=== PATIENT | male | born 1960 | race Hispanic/Latino ===

== ENCOUNTER 2016-11-10 16:42 | Emergency (ER) | payer MEDICAID, OTHER ==
[2016-11-10 16:55] VITALS: PULSE 100; RESP 18; TEMP 98.3; O2SAT 95
--- NOTE | 2016-11-10 17:09 | C.PDOC ---
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 SX EXAM NEG Time Seen by Provider: 11/10/16 17:05 Chief Complaint (Nursing): Substance Abuse History Per: Patient History/Exam Limitations: no limitations Past Medical History Reviewed: Historical Data, Nursing Documentation, Vital Signs Vital Signs: Last Vital Signs Temp 98.3 F 11/10/16 16:51 Pulse 100 H 11/10/16 16:51 Resp 18 11/10/16 16:51 BP 155/95 H 11/10/16 17:20 Pulse Ox 95 11/10/16 17:18 - Medical History PMH: Fractures (ribs), Hiatal Hernia, Seizures (alcoholic) Denies: Diabetes, Hepatitis, HIV, HTN, Sexually Transmitted Disease - [facility] Procedures ALCOHOL DETOXIFICATION (02/17/13) INJECT/INFUSE NEC (01/18/04) Family History: States: Unknown Family Hx - Social History Hx Tobacco Use: Yes Hx Alcohol Use: Yes Hx Substance Use: No - Immunization History Hx Tetanus Toxoid Vaccination: No Hx Influenza Vaccination: No Hx Pneumococcal Vaccination: No Review Of Systems Except As Marked, All Systems Reviewed And Found Negative. Constitutional: Negative for: Fever Cardiovascular: Negative for: Chest Pain Respiratory: Negative for: Shortness of Breath Psych: Negative for: Suicidal ideation Physical Exam - Physical Exam Appears: Non-toxic, No Acute Distress, Other (NO SIGNS OR SYMPTOMS OF ACUTE WITHDRAWAL. PATIENT IS CALM AND COOPERATIVE. NO TONGUE FASCICULATION. NO TREMOR. ) Eye(s): bilateral: Normal Inspection Neck: Normal ROM Respiratory: No Accessory Muscle Use Extremity: Normal ROM ED Course And Treatment O2 Sat by Pulse Oximetry: 95 Progress Note: Case was discussed w/ composite bond worker, who states that there are no detox beds available. Patient made aware; Pt will be discharged w/ a list of detox programs, and information for the detox co-ordinator/instructions for pre- screening process. Patient is agreeable with plan. All questions answered. - Physician Consult Information Time Consulting Physician Contacted: 17:06 Outcome Of Conversation: D/W CRISIS AVEL, NO DETOX BEDS AVAIL Disposition Counseled Patient/Family Regarding: Diagnosis, Need For Followup - Disposition Referrals: [facility] [Outside] [facility] [Outside] [facility] [Provider Group] [facility] [Other] Disposition: HOME/ ROUTINE Disposition Time: 17:06 Condition: GOOD Instructions: Abuse of Alcohol (ED) - Clinical Impression Clinical Impression: Alcohol abuse - Scribe Statement The provider has reviewed the documentation as recorded by the Sarita ANDERSON All medical record entries made by the Daneibe were at my direction and personally dictated by me. I have reviewed the chart and agree that the record accurately reflects my personal performance of the history, physical exam, medical decision making, and the department course for this patient. I have also personally directed, reviewed, and agree with the discharge instructions and disposition.
[2016-11-10 17:21] VITALS: BP 155/95
== END 2016-11-10 17:20 | disposition home or self-care (01) ==
LOC: C.ER 16:42
DX: F10.10 Alcohol abuse, uncomplicated (principal); Y90.9 Presence of alcohol in blood, level not specified

== ENCOUNTER 2016-11-10 19:08 | Emergency (ER) | payer MEDICAID, OTHER | END 2016-11-10 19:31 | disposition left against medical advice (07) | LOC: C.ER 19:08 | DX: R42 Dizziness and giddiness (principal); Z02.9 Encounter for administrative examinations, unspecified ==

== ENCOUNTER 2016-11-13 07:11 | Emergency (ER) | payer MEDICAID, OTHER ==
[2016-11-13 07:17] VITALS: BP 145/96; PULSE 115; RESP 22; TEMP 98.1; O2SAT 97
--- NOTE | 2016-11-13 07:30 | C.PDOC ---
History Of Present Illness 56 yo male, hx of etoh abuse, presents requesting detox. as per pt, drank etoh 8 hours ago. at this time, pt reports mild tremors no fevers, n/v/d, no urinary changes. no trauma Time Seen by Provider: 11/13/16 07:25 Chief Complaint (Nursing): Substance Abuse Past Medical History Reviewed: Historical Data, Nursing Documentation, Vital Signs Vital Signs: Last Vital Signs Temp 98.1 F 11/13/16 07:16 Pulse 115 H 11/13/16 07:16 Resp 22 11/13/16 07:16 BP 145/96 H 11/13/16 07:16 Pulse Ox 97 11/13/16 07:48 - Medical History PMH: Fractures (ribs), Hiatal Hernia, Seizures (alcoholic) Denies: Diabetes, Hepatitis, HIV, HTN, Sexually Transmitted Disease - [facility] Procedures ALCOHOL DETOXIFICATION (02/17/13) INJECT/INFUSE NEC (01/18/04) Family History: States: Unknown Family Hx - Social History Hx Tobacco Use: Yes Hx Alcohol Use: Yes Hx Substance Use: No - Immunization History Hx Tetanus Toxoid Vaccination: No Hx Influenza Vaccination: No Hx Pneumococcal Vaccination: No Review Of Systems Except As Marked, All Systems Reviewed And Found Negative. Physical Exam - Physical Exam Appears: Well, No Acute Distress, Other (minimal tremor, steady gait) Skin: Normal Color, Warm, Dry Eye(s): bilateral: Normal Inspection, PERRL, EOMI Nose: Normal Throat: Normal Neck: Normal Cardiovascular: Rhythm Regular Respiratory: Normal Breath Sounds Gastrointestinal/Abdominal: Normal Exam Back: Normal Inspection Extremity: Normal ROM ED Course And Treatment O2 Sat by Pulse Oximetry: 97 Medical Decision Making Medical Decision Making: no detox beds avail. pt given outpt f/u and return precautions. advised to call ahead to secure detox bed. librium given as pt with minimal tremor. Disposition - Disposition Disposition: HOME/ ROUTINE Disposition Time: 07:27 Condition: STABLE Additional Instructions: please call ahead for detox bed. return to er with worsening symptoms or concerns Instructions: Abuse of Alcohol (ED) - Clinical Impression Clinical Impression: Alcohol abuse
== END 2016-11-13 07:47 | disposition home or self-care (01) ==
LOC: C.ER 07:11
DX: F10.10 Alcohol abuse, uncomplicated (principal); Y90.9 Presence of alcohol in blood, level not specified

== ENCOUNTER 2016-11-13 17:11 | Emergency (ER) | payer MEDICAID, OTHER ==
[2016-11-13 17:48] VITALS: TEMP 98.3
--- NOTE | 2016-11-13 19:35 | C.PDOC ---
History Of Present Illness Patient is a 56 year old male who presents to the ER requesting detox from ETOH. Patient admits his last drink was 2 1/2 hours ago. Denies any physical complaints at this time. Chief Complaint (Nursing): Substance Abuse History Per: Patient History/Exam Limitations: no limitations Onset/Duration Of Symptoms: Hrs Current Symptoms Are (Timing): Still Present Suicide/Self Injury Attempted (Context): None Modifying Factor(s): Alcohol Associated Symptoms: denies: Depression, Suicidal Thoughts, Suicidal Plan Recent travel outside of the [place]: No Past Medical History Reviewed: Historical Data, Nursing Documentation, Vital Signs Vital Signs: Last Vital Signs Temp 98.3 F 11/13/16 17:43 Pulse 112 H 11/13/16 20:49 Resp 20 11/13/16 20:49 BP 151/90 H 11/13/16 20:49 Pulse Ox 99 11/13/16 20:49 - Medical History PMH: Fractures (ribs), Hiatal Hernia, Seizures Surgical History: No Surg Hx - [facility] Procedures ALCOHOL DETOXIFICATION (02/17/13) INJECT/INFUSE NEC (01/18/04) Family History: States: Unknown Family Hx - Social History Hx Tobacco Use: Yes Hx Alcohol Use: Yes Hx Substance Use: Yes - Immunization History Hx Tetanus Toxoid Vaccination: No Hx Influenza Vaccination: No Hx Pneumococcal Vaccination: No Review Of Systems Constitutional: Negative for: Fever, Chills Gastrointestinal: Negative for: Nausea, Vomiting, Diarrhea Psych: Negative for: Depression Physical Exam - Physical Exam Appears: Well, Non-toxic, No Acute Distress Skin: Normal Color, Warm, Dry Head: Atraumatic, Normacephalic Eye(s): bilateral: Normal Inspection, EOMI Oral Mucosa: Moist Chest: Symmetrical, No Tenderness Cardiovascular: Rhythm Regular, No Murmur Respiratory: Normal Breath Sounds, No Rales, No Rhonchi, No Wheezing Gastrointestinal/Abdominal: Soft, No Tenderness Neurological/Psych: Oriented x3, Normal Speech, Normal Cognition ED Course And Treatment - Laboratory Results Result Diagrams: 11/13/16 19:36 11/13/16 19:36 O2 Sat by Pulse Oximetry: 95 (Room air) Pulse Ox Interpretation: Normal Progress Note: Blood work and urinalysis ordered. Consulted with crisis for availability of detox beds, no detox beds available, will discharge home. Disposition Counseled Patient/Family Regarding: Diagnosis - Disposition Referrals: [facility] [Outside] Disposition: HOME/ ROUTINE Disposition Time: 20:24 Condition: STABLE Instructions: Narcotic Abuse (ED), Abuse of Alcohol (ED) - POA Present On Arrival: None - Clinical Impression Clinical Impression: Drug abuse, Alcohol abuse - Scribe Statement The provider has reviewed the documentation as recorded by the Scribe Darian Kim All medical record entries made by the Scribe were at my direction and personally dictated by me. I have reviewed the chart and agree that the record accurately reflects my personal performance of the history, physical exam, medical decision making, and the department course for this patient. I have also personally directed, reviewed, and agree with the discharge instructions and disposition.
[2016-11-13 19:39] LABS: BASO % 0.5 % (0.0-2.0); EOS % 0.8 % (0.0-4.0); HEMATOCRIT 41.5 % (35.0-51.0); LYMPH # 0.9 K/uL (1.0-4.3); LYMPH % 17.3 % (20.0-40.0); MONO # 0.7 K/uL (0.0-0.8); MONO % 13.9 % (0.0-10.0); NRBC % 0.2 % (0.0-2.0); RED CELL DISTRIBUTION WIDTH 14.1 % (11.5-14.5); WHITE BLOOD COUNT 5.1 K/uL (4.8-10.8)
[2016-11-13 19:42] LABS: RBC URINE 1 /hpf (0-3); URINE BILIRUBIN NEGATIVE (NEGATIVE); URINE BLOOD NEGATIVE (NEGATIVE); URINE GLUCOSE (UA) NORMAL (Normal); URINE KETONE 1+ mg/dL (NEGATIVE); URINE LEUKOCYTE ESTERASE NEG Leu/uL (Negative); URINE PROTEIN 1+ mg/dL (NEGATIVE); WBC URINE 2 /hpf (0-5)
[2016-11-13 19:43] LABS: URINE COLOR YELLWO (YELLOW)
[2016-11-13 19:47] LABS: CHLORIDE 88 mmol/L (98-107); POTASSIUM 3.9 mmol/L (3.6-5.2); SODIUM 131 mmol/L (132-148)
[2016-11-13 19:49] LABS: BILIRUBIN,TOTAL 1.4 mg/dL (0.2-1.3); CARBON DIOXIDE 27 mmol/L (22-30); GFR AFRICAN-AMERICAN > 60
[2016-11-13 19:50] LABS: ALB/GLOB RATIO 1.7 (1.0-2.1); ALKALINE PHOSPHATASE 47 U/L (38-126); ALT/SGPT 118 U/L (21-72); AST/SGOT 219 U/L (17-59); BLOOD UREA NITROGEN 9 mg/dL (9-20); GLUCOSE,RANDOM 97 mg/dL (75-110); TOTAL PROTEIN 7.7 g/dL (6.3-8.3)
[2016-11-13 19:51] LABS: ALCOHOL SERUM 99 mg/dl (0-10)
[2016-11-13 20:51] VITALS: BP 151/90; PULSE 112; RESP 20
[2016-11-17 19:42] VITALS: O2SAT 95
== END 2016-11-13 20:51 | disposition home or self-care (01) ==
LOC: C.ER 17:11
DX: F10.10 Alcohol abuse, uncomplicated (principal); F19.10 Other psychoactive substance abuse, uncomplicated; Y90.4 Blood alcohol level of 80-99 mg/100 ml

== ENCOUNTER 2016-11-14 15:09 | Inpatient (IN) | payer MEDICAID, OTHER ==
[2016-11-14 16:17] LABS: BASO % 0.7 % (0.0-2.0); EOS # 0.1 K/uL (0.0-0.7); EOS % 2.9 % (0.0-4.0); HEMATOCRIT 38.4 % (35.0-51.0); LYMPH # 1.4 K/uL (1.0-4.3); LYMPH % 31.1 % (20.0-40.0); MEAN CELL VOLUME 98.5 fL (80.0-94.0); MEAN CORPUSCULAR HGB CONC 35.5 g/dL (33.0-37.0); MEAN PLATELET VOLUME 7.6 fL (7.2-11.7); MONO # 0.6 K/uL (0.0-0.8); MONO % 13.2 % (0.0-10.0); RED CELL DISTRIBUTION WIDTH 13.8 % (11.5-14.5); WHITE BLOOD COUNT 4.6 K/uL (4.8-10.8)
[2016-11-14 16:26] LABS: CHLORIDE 89 mmol/L (98-107); POTASSIUM 3.7 mmol/L (3.6-5.2); SODIUM 128 mmol/L (132-148)
[2016-11-14 16:28] LABS: BILIRUBIN,TOTAL 1.3 mg/dL (0.2-1.3); GFR AFRICAN-AMERICAN > 60
[2016-11-14 16:29] LABS: ALB/GLOB RATIO 1.6 (1.0-2.1); ALKALINE PHOSPHATASE 46 U/L (38-126); ALT/SGPT 120 U/L (21-72); AST/SGOT 220 U/L (17-59); BLOOD UREA NITROGEN 5 mg/dL (9-20); CALCIUM 8.8 mg/dl (8.6-10.4); CARBON DIOXIDE 25 mmol/L (22-30); GLUCOSE,RANDOM 81 mg/dL (75-110); TOTAL PROTEIN 6.9 g/dL (6.3-8.3)
[2016-11-14 16:30] LABS: ALCOHOL SERUM 120 mg/dl (0-10)
[2016-11-14 16:41] LABS: URINE BACTERIA RARE (<OCC); URINE BILIRUBIN NEGATIVE (NEGATIVE); URINE BLOOD NEGATIVE (NEGATIVE); URINE COLOR Yellow (YELLOW); URINE GLUCOSE (UA) NORMAL (Normal); URINE KETONE TRACE mg/dL (NEGATIVE); URINE LEUKOCYTE ESTERASE NEG Leu/uL (Negative); URINE PROTEIN NEGATIVE (NEGATIVE); URINE UROBILINOGEN NORMAL mg/dL (0.2-1.0)
--- NOTE | 2016-11-14 16:41 | RAD ---
HISTORY: L arm numbness COMPARISON: 02/19/2013. TECHNIQUE: Chest PA and lateral FINDINGS: LUNGS: No active pulmonary disease. PLEURA: No significant pleural effusion identified. No pneumothorax apparent. CARDIOVASCULAR: Normal. OSSEOUS STRUCTURES: No significant abnormalities. VISUALIZED UPPER ABDOMEN: Normal. OTHER FINDINGS: Pectus deformity. Normal variant IMPRESSION: No active disease. No significant interval change compared to the prior examination(s).
[2016-11-14] MEDS ORDERED: Sodium Chloride 0.9% 1,000 ML IV ONE (16:59)
[2016-11-14] MEDS ORDERED: Folic Acid 1 MG, Thiamine 100 MG, Multivitamin (MVI) 10 ML in Dextrose 5% In Water 1,00... IV SCH (17:00)
--- NOTE | 2016-11-14 17:00 | C.PDOC ---
History Of Present Illness 56 y/o male presents to the ED requesting alcohol detox. Pt last drank this morning. Pt suffers from tremors, history of seizure due to withdrawal in 2009 which led to a coma. Pt took 1/2 xanax this morning and half prior to arrival but tremors still presents. Pt also reports numbness to left arm associated with cramping sensation to finger earlier today, currently resolved. Pt denies SOB, chest pain, headache, abdominal pain, fever, vomiting or any other complaints. 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 Seen by Provider: 11/14/16 15:25 Chief Complaint (Nursing): Substance Abuse History Per: Patient History/Exam Limitations: no limitations Onset/Duration Of Symptoms: Days Current Symptoms Are (Timing): Still Present Modifying Factor(s): Alcohol Severity: Moderate Involuntary Hold By: None Recent travel outside of the [place]: No Past Medical History Reviewed: Historical Data, Nursing Documentation, Vital Signs Vital Signs: Last Vital Signs Temp 98.5 F 11/14/16 15:14 Pulse 98 H 11/14/16 15:14 Resp 18 11/14/16 15:14 BP 158/93 H 11/14/16 15:14 Pulse Ox 95 11/14/16 17:43 - Medical History PMH: Fractures (ribs), Hiatal Hernia, Seizures (due to alcohol w/d) - [facility] Procedures ALCOHOL DETOXIFICATION (02/17/13) INJECT/INFUSE NEC (01/18/04) Family History: States: Unknown Family Hx - Social History Hx Tobacco Use: Yes Hx Alcohol Use: Yes Hx Substance Use: Yes (PT DENIES) - Immunization History Hx Tetanus Toxoid Vaccination: No Hx Influenza Vaccination: No Hx Pneumococcal Vaccination: No Review Of Systems Except As Marked, All Systems Reviewed And Found Negative. Constitutional: Negative for: Fever, Chills Cardiovascular: Negative for: Chest Pain Respiratory: Negative for: Shortness of Breath Gastrointestinal: Negative for: Vomiting, Abdominal Pain Neurological: Negative for: Weakness, Numbness, Headache Psych: Positive for: Other (tremors) Physical Exam - Physical Exam Appears: Non-toxic, No Acute Distress, Unkempt, Other (smells of alcohol) Skin: Warm, Dry, No Rash Head: Atraumatic, Normacephalic Eye(s): bilateral: PERRL, EOMI Ear(s): Bilateral: Normal Nose: Normal, No Discharge Oral Mucosa: Dry, No Drooling, No Trismus Neck: Normal, Normal ROM, Trachea Midline, Supple Chest: Symmetrical Cardiovascular: Rhythm Regular, No Edema, No Murmur Respiratory: Normal Breath Sounds, No Decreased Breath Sounds, No Accessory Muscle Use, No Rales, No Rhonchi, No Wheezing Gastrointestinal/Abdominal: Normal Exam, Bowel Sounds (normal), Soft, No Tenderness, No Organomegaly, No Mass, No Distention, No Guarding, No Rebound Back: Normal Inspection, No CVA Tenderness, No Vertebral Tenderness Extremity: Normal ROM, No Tenderness, No Swelling Extremity: Bilateral: Atraumatic, Normal ROM Neurological/Psych: Oriented x3, Normal Speech, Normal Cognition, Normal Cranial Nerves, No Cerebellar Signs, Normal Motor, Normal Sensation, Other ( mild tremor noted to hands) Gait: Steady ED Course And Treatment - Laboratory Results Result Diagrams: 11/14/16 16:19 11/14/16 16:04 O2 Sat by Pulse Oximetry: 95 (room air) Pulse Ox Interpretation: Normal Medical Decision Making Medical Decision Makin yo M presents for etoh detox, patient has a h/o etoh abuse, last intake was this AM. Patient was pre-screened by Sarah. Orders placed for labs, CXR, and ekg. EKG: NSR at 88 bpm, prolonged QT, (-) acute ST changes, as read by LUIS MANUEL. CXR: NAD, as read by LUIS MANUEL. Labs reviewed. Na 128, AST 220 / ALT 120, Etoh 120. NS 1 L bolus and banana bag IV ordered. Patient is medically cleared for evaluation by detox/crisis. Patient was evaluated by crisis, arrangements placed for the patient to go to detox. 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 - Scribe Statement The provider has reviewed the documentation as recorded by the Daneibkyler Garcia All medical record entries made by the Sarita were at my direction and personally dictated by me. I have reviewed the chart and agree that the record accurately reflects my personal performance of the history, physical exam, medical decision making, and the department course for this patient. I have also personally directed, reviewed, and agree with the discharge instructions and disposition.
[2016-11-14] MEDS ORDERED: Sodium Chloride 0.9% 1,000 ML ONE (18:25)
[2016-11-15] MEDS: Multiple Vitamins Tab PO SCH (10:48)
[2016-11-15 11:31] LABS: CHLORIDE 94 mmol/L (98-107); SODIUM 132 mmol/L (132-148)
[2016-11-15 11:32] LABS: POTASSIUM 4.2 mmol/L (3.6-5.2)
[2016-11-15 11:33] LABS: GFR AFRICAN-AMERICAN > 60
[2016-11-15 11:34] LABS: ALB/GLOB RATIO 1.5 (1.0-2.1); ALKALINE PHOSPHATASE 42 U/L (38-126); ALT/SGPT 99 U/L (21-72); AST/SGOT 137 U/L (17-59); BILIRUBIN,TOTAL 1.2 mg/dL (0.2-1.3); BLOOD UREA NITROGEN 9 mg/dL (9-20); CARBON DIOXIDE 31 mmol/L (22-30); GLUCOSE,RANDOM 99 mg/dL (75-110); PHOSPHOROUS 3.6 mg/dL (2.5-4.5); TOTAL PROTEIN 6.3 g/dL (6.3-8.3)
[2016-11-15 11:35] LABS: CALCIUM 8.5 mg/dl (8.6-10.4)
[2016-11-15 11:37] LABS: MAGNESIUM 2.2 mg/dL (1.6-2.3)
--- NOTE | 2016-11-15 13:58 | PCM.PSYCH ---
Initial Psychiatric Evaluation - Initial Psychiatric Evaluation Type of Admission: Voluntary Legal Status: Capacity Chief Complaint (in patient's own words): ""Alcohol" History of Present Illness and Precipitating Events: The patient is seen, chart reviewed and case discussed. This is a 56-year-old male, , has 4 adult children, homeless and lives at [facility]. 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 The patient admits to drinking up to 18 beers a day since age 16. He denies liquor use. His longest sobriety was 3 years and he was in detox twice, rehabilitation once, at [facility]. He denies all other drug use except for using Xanax once or twice. He had seizures several years ago but denies DTs. He does have wdw sxs at this time. Past psych history: Denies Family psych history: Denies Medical history: Denies Current Medications: Active Medications Generic Name Dose Route Start Last Admin Trade Name Freq PRN Reason Stop Dose Admin Folic Acid 1 mg 11/15/16 10:00 11/15/16 10:48 Folic Acid PO 1 mg DAILY GLORIA Administration Lorazepam 1 mg 11/14/16 19:20 Ativan PO Q4H PRN Symptoms of alcohol withdrawl Lorazepam 2 mg 11/15/16 09:00 11/15/16 10:21 Ativan PO 11/20/16 08:59 Not Given Q6H GLORIA Taper Multivitamins 1 tab 11/15/16 10:00 11/15/16 10:48 Hexavitamin PO 1 tab DAILY GLORIA Administration Nicotine 1 patch 11/15/16 10:45 11/15/16 10:50 Nicoderm Cq TD 1 patch DAILY GLORIA Administration Thiamine HCl 100 mg 11/15/16 10:00 11/15/16 10:48 Vitamin B1 Tab PO 100 mg DAILY GLORIA Administration Trazodone HCl 50 mg 11/14/16 19:20 Desyrel PO HS PRN Insomnia Past Psychiatric History - Past Psychiatric History Previous Treatment History: None Pertinent Medical Hx (Current Medical&Sleep Prob, Allergies): Allergies Allergy/AdvReac Type Severity Reaction Status Date / Time No Known Allergies Allergy Verified 11/14/16 15:12 RX: No Known Home Med 11/10/16 Review of Systems - Psychiatric Psychiatric: Abnormal Sleep Pattern, Anxiety, Difficulty Concentrating. absent : Hallucinations, Homicidal Ideation, Suicidal Ideation Mental Status Examination - Personal Presentation Personal Presentation: Looks stated age - Affect Affect: Constricted - Motor Activity Motor Activity: Calm - Reliability in Providing Information Reliability in Providing Information: Good - Speech Speech: Organized - Mood Mood: Anxious - Formal Thought Process Formal Thought Process: No Impairment - Cognitive Functions Orientation: Person, Place, Situation, Time Sensorium: Alert Attention/Concentration: Attentive Estimate of Intelligence: Average Judgement: Intact, as evidence by: Insight regarding need for hospitalization Memory: Recent intact, as evidence by: Ability to recall events of the day, Remote intact, as evidenced by: Ability to recall historical events - Risk Risk: Diminished functioning - Strength & Assets Inventory Strength & Assets Inventory: Cooperative - Limitations Limitations: Living alone DSM 5 DX - DSM 5 DSM 5 Diagnosis: Alcohol withdrawal Alcohol use d/o - severe - Recommended/Plan of Treatment Treatment Recommendations and Plan of Treatment: Ativan detox due to elevated LFTs gabapentin As needed medications Support and psychoeducation Attend groups and activities NH and CBT for abstinence and relapse prevention Refer to rehabilitation or IOP Consider naltrexone when liver is better Topamax for cravings 32 min Projected ELOS: 4-5 days Prognosis: good Discharge Plan and Discharge Criteria: no wdw refer to rehab or iop - Smoking Cessation Smoking Cessation Initiated: Yes
--- NOTE | 2016-11-15 18:29 | CARD ---
APPROVED REPORT EKG Measurement Heart [id number] <Conclusion> Normal sinus rhythm Prolonged QT Abnormal ECG
[2016-11-16] MEDS: Multiple Vitamins Tab PO SCH (09:40)
--- NOTE | 2016-11-16 14:54 | PCM.PYCHPN ---
Psychiatric Progress Note - Psychiatric Progress Note Patient seen today, length of contact: 16 min Patient Chief Complaint: "Tired" Problems Identified/Issues Discussed: The pt is seen, chart reviewed, case discussed with staff. The pt is compliant with medications and reports no side-effects. Symptoms of withdrawal are improving but needs more time to stabilize. After care discussed, MAT and rehab recommended Support and psychoeducation given. Medication Change: Yes (detox changes daily) Medical Record Reviewed: Yes Mental Status Examination - Cognitive Function Orientation: Person, Place, Situation, Time Memory: Intact (mostly) Attention: Poor Concentration: Poor - Mood Mood: Anxious - Affect Affect: Constricted - Speech Speech: Appropriate - Formal Thought Process Formal Thought Process: No Impairment - Suicidal Ideation Suicidal Ideation: No - Homicidal Ideation Homicidal Ideation: No Goal/Treatment Plan - Goal/Treatment Plan Need for Continued Stay: Discharge may exacerbated symptoms, Severe functional impairment Progress Toward Problem(s) and Goals/Treatment Plan: Ativan detox due to elevated LFTs gabapentin As needed medications Support and psychoeducation Attend groups and activities ME and CBT for abstinence and relapse prevention Refer to rehabilitation or IOP Consider naltrexone when liver is better Topamax for cravings Estimated Date of D/C: 11/18/16 - Smoking Cessation Smoking Cessation Initiated: Yes
[2016-11-17 06:08] VITALS: O2SAT 97
--- NOTE | 2016-11-17 08:49 | PCM.PYCHDC ---
Mental Status Examination - Mental Status Examination Orientation: Person, Place, Situation, Time Memory: Intact Mood: Neutral Affect: Constricted Speech: Soft Attention: WNL Concentration: WNL Association: WNL Fund of Knowledge: WNL Formal Thought Process: No Impairment Description of patient's judgement and insight: good, fair Psychotic Thoughts and Behaviors: denies any AVH Suicidal Ideation: No Current Homicidal Ideation?: No Discharge Summary - Discharge Note Reason for Hospitalization: The patient is seen, chart reviewed and case discussed. This is a 56-year-old male, , has 4 adult children, homeless and lives at [facility]. 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 The patient admits to drinking up to 18 beers a day since age 16. He denies liquor use. His longest sobriety was 3 years and he was in detox twice, rehabilitation once, at [facility]. He denies all other drug use except for using Xanax once or twice. He had seizures several years ago but denies DTs. He does have wdw sxs at this time. Consultations:: List each consultation separately and include: 1. Reason for request. 2. Findings. 3. Follow-up Summary of Hospital Course include:: 1. Description of specific treatment plan utilized for patients during their course of treatmen. 2. Summarize the time- course for resolution of acute symptoms and/or regressed behaviors. 3. Describe issues identified and worked on during hospitalization. 4. Describe medication utilized. 5. Describe medical problems identified and treated. 6. Reassessment of suicide risk Summary of Hospital Course: During the course of his stay, patient (pt) started progressively improving and he no longer remained anxious and irritable. He tolerated the withdrawal protocol very well. He didnt have any shakes, sweating or any other withdrawal symptoms. He started attending groups and meetings and started socializing. Denied any feelings of hopelessness, helplessness, and worthlessness, denied any problem with the sleep or appetite, denied suicidal ideation or homicidal ideation. Pt denied any auditory or visual hallucinations. Patient remained calm and cooperative and remained compliant with the medications. Patient tolerated the detox medications very well and denied any side effects. - Final Diagnosis (DSM 5) Condition upon Discharge: STABLE DSM 5: Alcohol withdrawal Alcohol use d/o - severe Disposition: HOME/ ROUTINE Follow-up Treatment Plan: Education: Pt was educated and counseled about the risks and benefits of taking and not taking medications. Pt was educated and counseled about the risks of drinking and abusing drugs. Pt was educated and counseled to go to the ER or call 911 if pt develop suicidal ideation or homicidal ideation, worsening of symptoms or severe side effects of the meds. Prescriptions/Medication Reconciliation: Gabapentin [Neurontin] 100 mg PO TID #90 cap Topiramate [Topamax] 25 mg PO BID #60 tab traZODone [Desyrel] 50 mg PO HS PRN #30 tab PRN Reason: Insomnia - Smoking Cessation Smoking Cessation Medication prescribed: No - Antipsychotic Medications Pt discharged on 2 or more routine antipsychotic medications: No
[2016-11-17] MEDS: Multiple Vitamins Tab PO SCH (09:01)
[2016-11-17 09:11] VITALS: BP 129/83; PULSE 91; RESP 18; TEMP 97.9
== END 2016-11-17 09:15 | disposition home or self-care (01) | DRG 751 ==
LOC: C.ER 15:09 → C.7D 18:33
PROVIDERS: ADMIT Psychiatry & Neurology Psychiatry; ATTEND Psychiatry & Neurology Psychiatry
DX: F10.239 Alcohol dependence with withdrawal, unspecified (principal)

== ENCOUNTER 2016-12-14 16:34 | Emergency (ER) | payer MEDICAID, OTHER ==
[2016-12-14 16:55] VITALS: BMI 22.3
[2016-12-14 16:57] VITALS: BP 129/81; PULSE 69; RESP 18; TEMP 98.9; O2SAT 99
--- NOTE | 2016-12-14 17:06 | C.PDOC ---
History Of Present Illness 56 yr old male presents to the ER requesting med refill on his psych medicine. Patient reports he only has 1 day supply left and his next appointment psychiatrist is next week on Sunday. At the time of evaluation, pt denies any active complaints. asymptomatic. Denies fever, chills, headache, dizziness, denies recent sz activity, visual changes, focal deficits, CP, SOB, dyspnea, abd. pain, nausea, vomiting, denies suicidal ideation or homicidal ideation. 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 Gastrointestinal: Negative for: Nausea, Vomiting Psych: Negative for: Suicidal ideation Physical Exam - Physical Exam Appears: Non-toxic Skin: Warm, Dry, No Rash Head: Atraumatic, Normacephalic Oral Mucosa: Moist Chest: Symmetrical, No Tenderness Cardiovascular: Rhythm Regular, No Murmur Respiratory: Normal Breath Sounds, No Rales, No Rhonchi, No Stridor, No Wheezing Neurological/Psych: Oriented x3, Normal Speech, Normal Motor ED Course And Treatment O2 Sat by Pulse Oximetry: 99 Pulse Ox Interpretation: Normal Progress Note: Case discussed with PES, confirmed pt was admitted to Detox month ago and rx given on discharge. At present time, Pt denies any active complaints. DEnies suicidal or homocidal ideation. Neurologicaly intact. Pt advised to F/U with Psych as scheduled on 12/18/16 for further eavluation and refill on medictaion. Pt understand and stable for discharge now. Disposition Counseled Patient/Family Regarding: Diagnosis, Need For Followup, Rx Given - Disposition Referrals: Mary Arteaga MD [Staff Provider] - Disposition: HOME/ ROUTINE Disposition Time: 17:21 Condition: STABLE Additional Instructions: Follow up with as scheduled on 12/18/16 for further evaluation and medication supply. Return to ED i any worsening or new changes. Prescriptions: Gabapentin [Neurontin] 100 mg PO TID #9 capsule Topiramate [Topamax] 25 mg PO BID #6 tab traZODone [Desyrel] 50 mg PO HS #3 tab Instructions: Medicine Refill (ED) - Clinical Impression Clinical Impression: Medication refill - PA / LOAN CLOSER / Resident Statement MD/DO has reviewed & agrees with the documentation as recorded. - Scribe Statement The provider has reviewed the documentation as recorded by the Scribe Ewa Sr All medical record entries made by the Scribe were at my direction and personally dictated by me. I have reviewed the chart and agree that the record accurately reflects my personal performance of the history, physical exam, medical decision making, and the department course for this patient. I have also personally directed, reviewed, and agree with the discharge instructions and disposition.
== END 2016-12-14 17:49 | disposition home or self-care (01) ==
LOC: C.ER 16:34
DX: Z76.0 Encounter for issue of repeat prescription (principal)

== ENCOUNTER 2017-01-28 15:24 | Emergency (ER) | payer MEDICAID ==
[2017-01-28 15:24] VITALS: BMI 22.3
[2017-01-28 15:49] VITALS: BP 126/78; PULSE 91; RESP 20; TEMP 98.8; O2SAT 99
== END 2017-01-28 16:14 | disposition left against medical advice (07) ==
LOC: C.ER 15:24
DX: M79.671 Pain in right foot (principal); Z02.9 Encounter for administrative examinations, unspecified